=== PATIENT | male | born 1970 | race Caucasian/White ===

== ENCOUNTER → 2024-05-06 11:45 | Outpatient (REF) | payer BC, SELFPAY | LOC: HWRAD 11:45 | PROVIDERS: ATTENDING PHYSICIAN Family Medicine | DX: M54.50 Low back pain, unspecified (principal) | CPT/HCPCS: 72110; 72170 ==

== ENCOUNTER → 2024-08-04 18:41 | Outpatient (REF) | payer BC, SELFPAY | LOC: MRI 18:41 | PROVIDERS: ATTENDING PHYSICIAN Family Medicine | DX: M54.50 Low back pain, unspecified (principal) | CPT/HCPCS: 72158; A9575 ==

== ENCOUNTER → 2025-01-11 07:50 | Outpatient (REF) | payer BC, SELFPAY | LOC: HWRAD 07:50 | PROVIDERS: ATTENDING PHYSICIAN Family Medicine | DX: M79.89 Other specified soft tissue disorders (principal) | CPT/HCPCS: 76536 ==

== ENCOUNTER → 2025-07-31 08:30 | Outpatient (REF) | payer BC, SELFPAY | LOC: MRI 3T 08:30 | PROVIDERS: ATTENDING PHYSICIAN Physician Assistant Medical; FAMILY PHYSICIAN Family Medicine | DX: R20.2 Paresthesia of skin (principal); M54.2 Cervicalgia; G89.29 Other chronic pain | CPT/HCPCS: 72156; A9575 ==

== ENCOUNTER → 2025-08-16 15:51 | Outpatient (REF) | payer BC, SELFPAY | LOC: MRI 3T 15:51 | PROVIDERS: ATTENDING PHYSICIAN Family Medicine | DX: R20.2 Paresthesia of skin (principal); M54.2 Cervicalgia; G89.29 Other chronic pain | CPT/HCPCS: 72157; A9575 ==

== ENCOUNTER → 2025-09-29 09:05 | Outpatient (REF) | payer BC, SELFPAY | LOC: PAVMRI 09:05 | PROVIDERS: ATTENDING PHYSICIAN Physician Assistant Medical; FAMILY PHYSICIAN Family Medicine | DX: R20.2 Paresthesia of skin (principal); M54.2 Cervicalgia; R51.9 Headache, unspecified | CPT/HCPCS: 70553; A9575 ==